=== PATIENT | female | born 1990 | race Hispanic/Latino ===

== ENCOUNTER 2016-12-28 15:03 | Day surgery (SDC) | payer OTHER ==
[2016-12-28 15:59] VITALS: BMI 50.0
[2016-12-28 16:01] VITALS: BP 103/55; TEMP 99
[2016-12-28] MEDS ORDERED: FLU VACC QS2017-18 36 mo. & older 0.5 ML SYRINGE IM ONE (16:15)
[2016-12-28 16:51] LABS: #Basophils 0.1 thou/uL (0.0-0.2); #Eosinphils 0.2 thou/uL (0.0-0.7); #Lymphocytes 2.4 thou/uL (1.20-3.40); #Monocytes 0.7 thou/uL (0.11-0.59); %Basophils 0.6 % (0.0-1.0); %Eosinophils 2.2 % (0.0-10.0); %Lymphocytes 28.8 % (21.0-51.0); %Monocytes 8.2 % (0.0-10.0); Mean Platelet Volume 7.4 fL (7.4-10.4); White Blood Cell (WBC) Count 8.3 thou/uL (4.8-10.8)
[2016-12-28 17:12] LABS: Amnisure Test No Membranes Rupture (No Rupture)
[2016-12-28 17:16] LABS: ALT (SGPT) 7 U/L (8-55); AST (SGOT) 13 U/L (5-34); Alkaline Phosphatase 183 U/L (40-150); Anion Gap 11 mmol/L (10-20); BUN (Urea Nitrogen) 8 mg/dL (7.0-18.7); Bilirubin, Total 0.3 mg/dL (0.2-1.2); Calc. Creatinine Clearance 264 mL/min (70-130); Calcium 9.1 mg/dL (7.8-10.44); Carbon Dioxide 23 mmol/L (22-29); Chloride 106 mmol/L (98-107); Estimated GFR-MDRD Greater than 90; Globulin 4.2 g/dL (2.4-3.5); Protein, Total 7.3 g/dL (6.0-8.3)
--- NOTE | 2016-12-28 21:11 | PRG ---
DATE OF SERVICE: 12/28/2016 PRESENTING COMPLAINT: Lower abdominal pain at 34 weeks' gestation with nausea. HISTORY OF PRESENT ILLNESS: Ms. Lamas is a 26-year-old female well known to Labor and Delivery unit. She is a seen at the Clinic and this is her third visit during this p regnancy. She has a relatively uncomplicated OB history with 3 previous spontaneous vaginal deliver ies at 38 and 37 weeks as well as an elective termination x1 at in [place]. She reports lower abdominal pain and pressure and round ligament pain. She thinks she had some discharge, but does n ot think her water broke. She reports mild nausea. OB AND EXTENSION SPECIALIST HISTORY: As noted, history of chlamydia. Blood type unknown. Other labs appear normal. OB record: She had a positive group B strep culture in her urine in early . There was a h istory of chlamydia in the past. PAST MEDICAL HISTORY: Significant for morbid obesity and depression PAST SURGICAL HISTORY: Cholecystectomy. ALLERGIES: Denies. MEDICATIONS: vitamins. SOCIAL HISTORY: Denies tobacco, alcohol, or drug use. FAMILY HISTORY: Noncontributory. REVIEW OF SYSTEMS: Noncontributory. PHYSICAL EXAMINATION: . GENERAL: Morbidly obese female, in no acute distress. VITAL SIGNS: Blood pressure 131/78, temperature 96, respirations 18, and pulse 85. HEENT: Within normal limits. LUNGS: Clear to auscultation bilaterally. HEART: Regular rhythm. BREASTS: No masses bilaterally. ABDOMEN: Soft, nontender, no palpable contractions. GENITOURINARY: Vulva without lesions. Vagina without discharge. Cervix is 1, long, and high. EXTREMITIES: Without clubbing, cyanosis or edema. LABORATORY STUDIES: CBC is within normal limits. Comp met is within normal limits as well. monitoring: greater than 30 minute strip revealed positive accelerations, no decels and no contract ions noted. IMPRESSION: Discomforts of /round ligament pain at 34 weeks gestation without evidence of labor. PLAN: Reassurance discharge home. The patient to keep scheduled followup at clinic.
== END 2016-12-28 18:20 | disposition home or self-care (01) ==
LOC: L&D/OP 15:03
PROVIDERS: ATTEND Obstetrics & Gynecology
DX: O26.893 Other specified pregnancy related conditions, third trimester (principal); O99.89 Other specified diseases and conditions complicating pregnancy, childbirth and the puerperium; R10.30 Lower abdominal pain, unspecified; O99.213 Obesity complicating pregnancy, third trimester; E66.01 Morbid (severe) obesity due to excess calories; Z68.43 Body mass index [BMI] 50.0-59.9, adult; Z79.899 Other long term (current) drug therapy; Z90.49 Acquired absence of other specified parts of digestive tract; Z87.891 Personal history of nicotine dependence; Z3A.34 34 weeks gestation of pregnancy
CPT/HCPCS: 36415; 80053; 84112; 85025

== ENCOUNTER 2017-01-24 17:45 | Day surgery (SDC) | payer OTHER ==
[2017-01-24 18:08] VITALS: BP 123/72; TEMP 98.5
[2017-01-24 18:12] VITALS: BMI 51.3
[2017-01-24 18:51] LABS: Amnisure Test No Membranes Rupture (No Rupture)
[2017-01-24] MEDS ORDERED: Acetaminophen 500 MG TAB PO SCH (19:45)
[2017-01-24] MEDS ORDERED: MORPHINE 10 MG/ML SYRINGE IM SCH (21:15)
[2017-01-24] MEDS ORDERED: Morphine 10 MG/ML VIAL ONE (21:40)
--- NOTE | 2017-01-25 01:35 | PRG ---
DATE OF SERVICE: 01/24/2017 CHIEF COMPLAINT: Abdominal pain. HISTORY OF PRESENT ILLNESS: The patient is a 26-year-old female, G5, P3, with an intrauterine pregn nixon at 38 weeks and 4 days, who was represented to labor and delivery today with complaints of uter ine contractions. She last presented early in the morning with similar complaints. She reports angel luis t her contractions dissipated after being discharged home and returned again today around noon. She reports that the pains are intermittent, sometimes more severe than other times. She reports that she may be having a small amount of leakage of fluid, but is unsure at source. She denies any vagin al bleeding. She reports that she is tired of being and feeling the discomfort that she viera s been experiencing. PAST MEDICAL HISTORY: Significant for anxiety and depression. PAST SURGICAL HISTORY: She has had a cholecystectomy. ALLERGIES: No known drug allergies. MEDICATIONS: The patient is on vitamins, on Prozac, and on Xanax, prescribed by [facility]. OB LABS: Unavailable at the time of dictation. OB HISTORY: She has had 3 term spontaneous vaginal deliveries. REVIEW OF SYSTEMS: The patient denies illness, fever, cough, headache, chest pain, shortness of navya ath, nausea or vomiting. She has had some diarrhea in the recent past. Denies constipation. Denie s any new rash, lumps or bumps. Denies any hip problems or knee problems. She has had some lower b ack problems and pain with this . Her pain and contraction pains are mainly in her lower p tyler and in the front and more recently in her back. The patient denies any vaginal bleeding, any urinary problems. PHYSICAL EXAMINATION: VITAL SIGNS: Blood pressure is 123/72, heart rate of 94, respiratory rate of 18, temperature of 98. 8. GENERAL: She appears to be in no acute distress. She is alert and oriented, and cooperative and pl easant to interact with. The patient does appear anxious and uncomfortable. HEAD: Normocephalic, atraumatic. LUNGS: Clear to auscultation bilaterally. HEART: Has regular rate and rhythm. ABDOMEN: Obese and gravid and tender. No guarding. The patient has SI joint tenderness to palpati on, that upon palpation report that is the main source of her pain. PELVIC: Vulva is without masses, lesions or erythema. Vagina is moist. Cervix is about 4 cm, 80% effaced and -2 station. She is unchanged essentially after 3-1/2 hours. heart tracing for threatened labor, baseline is noted to be in the 140s with moderate long-ter m variability, positive accelerations, no decelerations, very difficult to identify contractions on the monitor. AmniSure test returned negative. ASSESSMENT AND PLAN: The patient is a 26-year-old female with an intrauterine at 38 weeks and 4 days and a very favorable cervix. There is no evidence of active labor at this time and is d ifficult to identify when her contractions are occurring and fetus has a reassuring tracing. The pa nurys has expressed a lot of distress with this and she has found some reassurance and angel luis t we have scheduled her for elective induction of labor at 39 weeks' gestation, which puts her to th is Wednesday should she not enter labor on her own. She has been asked to come at 9:00 in the [facility]. I have notified the OB provider, OB hospitalist, on duty that day, Dr. Peters, who has agreed wi th this. The patient has been given term labor precautions. She has been given 8 mg of morphine IM an hour or so prior to discharge home, which is provided some comfort.
== END 2017-01-24 22:35 | disposition home or self-care (01) ==
LOC: L&D/OP 17:45
PROVIDERS: ATTEND Obstetrics & Gynecology
DX: O47.1 False labor at or after 37 completed weeks of gestation (principal); O99.343 Other mental disorders complicating pregnancy, third trimester; F41.9 Anxiety disorder, unspecified; F32.9 Major depressive disorder, single episode, unspecified; Z3A.38 38 weeks gestation of pregnancy; Z79.899 Other long term (current) drug therapy; Z90.49 Acquired absence of other specified parts of digestive tract; Z87.891 Personal history of nicotine dependence
CPT/HCPCS: 84112; 96372; J2270

== ENCOUNTER 2017-01-26 08:47 | Inpatient (IN) | payer OTHER ==
[2017-01-26 09:14] VITALS: BMI 51.3
[2017-01-26] MEDS ORDERED: Lidocaine 1% (PF) 30 ML VIAL SC PRN (12:56)
[2017-01-26] MEDS ORDERED: Ondansetron HCl/PF 4 MG/2 ML Vial IVP PRN ×3 (12:56→19:47)
[2017-01-26] MEDS ORDERED: Ibuprofen 800 MG TAB PO PRN (12:56)
[2017-01-26] MEDS ORDERED: Promethazine HCl 25 MG/ML VIAL IM PRN ×2 (12:56→14:15)
[2017-01-26] MEDS ORDERED: LR / Pitocin 40 units/1000 ml 1,000 ML IV PRN (12:56)
[2017-01-26] MEDS ORDERED: HYDROcodone/Acetaminophen 5/325 mg Tablet PO PRN ×3 (12:56→19:47)
[2017-01-26] MEDS ORDERED: Lactated Ringer's 1,000 ML IV SCH (13:00)
[2017-01-26] MEDS ORDERED: Penicillin G Potassium 5 MILL.UNITS in Sodium Chloride 0.9% 100 ML IVPB SCH (13:00)
[2017-01-26] MEDS: Lactated Ringer's 1,000 ML IV SCH ×2 (13:10→14:31)
[2017-01-26] MEDS ORDERED: Fentanyl 4 mcg/Marc 0.1% Cadd 100 ML ONE (13:32)
[2017-01-26] MEDS ORDERED: Fentanyl 100 MCG/2 ML VIAL ONE (13:37)
[2017-01-26] MEDS ORDERED: Bupivacaine 0.75% W/DEXTROSE 8.25% 2 ML AMP ONE (13:37)
[2017-01-26 13:57] LABS: Hematocrit 32.7 % (36.0-47.0); Mean Platelet Volume 7.5 fL (7.4-10.4); Red Blood Cell (RBC) Count 3.89 mill/uL (4.20-5.40); White Blood Cell (WBC) Count 14.4 thou/uL (4.8-10.8)
[2017-01-26] MEDS ORDERED: Fentanyl 100 MCG/2 ML VIAL I-THECAL ONE (14:15)
[2017-01-26] MEDS ORDERED: Communication Order-Pharmacy FS SCH (14:15)
[2017-01-26] MEDS ORDERED: Eucerin (Mineral Oil/Petrolatum,White) 30 gm Jar TOP PRN (14:15)
[2017-01-26] MEDS ORDERED: Fentanyl 4mcg/Marcaine 0.1% Cassette 100 ML EPIDURAL SCH (14:15)
[2017-01-26] MEDS ORDERED: diphenhydrAMINE 50 MG/ML VIAL IVP PRN (14:15)
[2017-01-26] MEDS ORDERED: Naloxone HCl 0.4 mg/ml Vial IVP PRN ×2 (14:15)
[2017-01-26] MEDS ORDERED: ePHEDrine/0.9% NaCl/PF SYRINGE 50 mg/10 ml SLOW IVP PRN (14:15)
[2017-01-26] MEDS ORDERED: Bupivacaine 0.75% W/DEXTROSE 8.25% 2 ML AMP NERVE BLCK ONE (14:15)
[2017-01-26] MEDS ORDERED: Lactated Ringer's 500 ML IV PRN (14:15)
[2017-01-26] MEDS ORDERED: Acetaminophen 325 MG TAB PO PRN (14:15)
[2017-01-26] MEDS ORDERED: Penicillin G 2.5 MILL.units 2.5 MILL.UNITS in Premix Bag 1 BAG IVPB SCH (17:00)
[2017-01-26] MEDS ORDERED: Bisacodyl 10 MG SUPP PR PRN (19:47)
[2017-01-26] MEDS ORDERED: Milk Of Magnesia 30 ML UDCUP PO PRN (19:47)
[2017-01-26] MEDS ORDERED: Adacel (T-DAP) 0.5 ML VIAL IM ONE (19:47)
[2017-01-26] MEDS ORDERED: Lanolin Ointment 7 GM TUBE TOP PRN (19:47)
[2017-01-26] MEDS ORDERED: LR / Pitocin 40 units/1000 ml 1,000 ML IV SCH (19:47)
[2017-01-26] MEDS: Ibuprofen 800 MG TAB PO SCH (20:24)
[2017-01-26] MEDS: Docusate (Surfak) 240 MG CAP PO SCH (20:24)
[2017-01-27] MEDS: HYDROcodone/Acetaminophen 5/325 mg Tablet PO PRN ×5 (02:01→21:38)
[2017-01-27 05:30] LABS: Hematocrit 28.3 % (36.0-47.0); Mean Platelet Volume 7.4 fL (7.4-10.4); Red Blood Cell (RBC) Count 3.38 mill/uL (4.20-5.40); White Blood Cell (WBC) Count 12.2 thou/uL (4.8-10.8)
[2017-01-27] MEDS: Ibuprofen 800 MG TAB PO SCH ×3 (05:46→21:37)
[2017-01-27] MEDS: Prenatal Vitamin 1 TAB PO SCH (08:21)
[2017-01-27] MEDS: Ferrous Sulfate 325 MG TAB PO SCH ×2 (08:21→17:11)
[2017-01-27] MEDS: Docusate (Surfak) 240 MG CAP PO SCH ×2 (08:21→21:37)
--- NOTE | 2017-01-27 08:26 | PRG ---
DATE OF SERVICE: 01/27/2017 PRIMARY OB: Clinic HISTORY OF PRESENT ILLNESS: The patient is a 26-year-old female day 1, status post a ter m spontaneous vaginal delivery. The patient reports that this morning she is tolerating p.o., voidi ng on her own, having decreased lochia. She has some concern about breast feeding and her baby's ab ility to latch. PHYSICAL EXAMINATION: VITAL SIGNS: Today blood pressure 99/49, temperature 98.0, pulse is 62, respiratory rate 20. GENERAL: She appears to be in no acute distress. She is alert and oriented, and cooperative and pl easant and interactive. HEENT: Normocephalic, atraumatic. ABDOMEN: Soft. Fundus is firm; however, difficult to assess due to habitus. EXTREMITIES: Nontender. LABORATORY: Her hemoglobin is 9.3, hematocrit 28.3, platelets of 244,000. ASSESSMENT AND PLAN: The patient is post- day 1, status post a term spontaneous vaginal deliv shaniqua. Anticipate discharge tomorrow.
--- NOTE | 2017-01-27 10:22 | DN ---
DATE OF DELIVERY: 01/26/2017 SUMMARY: The patient delivered a male on 01/26/2017 at 15:50 by term spontaneous vaginal deli very. Weight was 3360 grams, Apgars were 9 and 9. Placenta delivered spontaneously followed by Pavel myke infusion. There were no lacerations. Dr. Russell is the delivering physician. Estimated blood loss is 200 mL. Mother and baby are stable in the immediate .
--- NOTE | 2017-01-27 14:52 | PDOC.EVN ---
Event Note - Event Note Event Note: 01/27/17 @ 1451: Patient takes prozac 60mg po QD and requests med to continue. I will order now for her.
[2017-01-27] MEDS ORDERED: FLUoxetine HCl 20 MG CAP PO SCH (19:15)
[2017-01-27 21:27] VITALS: BP 121/75; TEMP 98
[2017-01-28] MEDS: HYDROcodone/Acetaminophen 5/325 mg Tablet PO PRN ×3 (01:33→12:28)
[2017-01-28] MEDS: Ibuprofen 800 MG TAB PO SCH (06:02)
--- NOTE | 2017-01-28 07:58 | DIS ---
DATE OF ADMISSION: 01/26/2017 DATE OF DISCHARGE: 01/28/2017 LOCATION: 3 [facility], patient in room 341. PRINCIPAL DIAGNOSES: 1. Term vaginal delivery. 2. Multigravida. HOSPITAL COURSE: In brief, this is a patient who was admitted by Dr. Russell on day of presentation as a patient with spontaneous onset of labor. She is a patient of the Clinic. Past medical history included a history of anxiety and past medications include Prozac. The patient was admitted for routine labor management. For full details of her labor and delivery process and delivery itself please turn to note by Dr. Russell on 01/26/2017. I evaluated the patient on day #2 , which was 01/28/2017 and found her to be clinically stable for discharge. Her temperature ranged from 98.0 to 98.5. Pulse was in the 50s to 60s, blood pressure ranged from 121/75 to 99/14. On laboratory assessment predelivery hematocrit value was 32 and value was 28.3. Hepatitis B surface antigen and syphilis serologies were drawn on admission and were both negative. PHYSICAL EXAMINATION: She is in no acute distress. Uterus was firm and nontender, although it was difficult to palpate the uterus because her BMI was 51. DISPOSITION: She was sent home on Motrin p.r.n. for after pains. She was also told to call the Clinic for followup appointment in 4 weeks for routine care and she voiced understanding. KD
[2017-01-28] MEDS: Prenatal Vitamin 1 TAB PO SCH (08:18)
[2017-01-28] MEDS: Ferrous Sulfate 325 MG TAB PO SCH (08:18)
[2017-01-28] MEDS: Docusate (Surfak) 240 MG CAP PO SCH (08:18)
[2017-01-28] MEDS ORDERED: FLUoxetine HCl 20 MG CAP PO SCH (09:00)
== END 2017-01-28 13:15 | disposition home or self-care (01) | DRG 775 ==
LOC: L&D/OP 08:47 → L&D 13:00 → 3SW 19:33
PROVIDERS: ADMIT Obstetrics & Gynecology; ATTEND Obstetrics & Gynecology
PROC: 10E0XZZ Delivery of Products of Conception, External Approach (ICD-10-PCS; principal; 2017-01-26)
DX: O99.344 Other mental disorders complicating childbirth (principal); Z68.43 Body mass index [BMI] 50.0-59.9, adult; F41.9 Anxiety disorder, unspecified; Z3A.38 38 weeks gestation of pregnancy; Z37.0 Single live birth; F32.9 Major depressive disorder, single episode, unspecified; O99.214 Obesity complicating childbirth; O99.02 Anemia complicating childbirth; D64.9 Anemia, unspecified; E66.01 Morbid (severe) obesity due to excess calories
CPT/HCPCS: 36415; 85027; 86780; 87340; J0595; J2540; J3010; J3490; J7050

== ENCOUNTER 2017-06-28 09:34 | Emergency (ER) | payer OTHER ==
[2017-06-28] MEDS ORDERED: Lidocaine 1% PF 5 ML VIAL ONE ×2 (11:00→11:03)
[2017-06-28] MEDS ORDERED: Adacel (T-DAP) 0.5 ML VIAL ONE (11:01)
[2017-06-28] MEDS ORDERED: Ibuprofen 200 MG TAB ONE (11:01)
== END 2017-06-28 12:00 | disposition home or self-care (01) ==
LOC: ERS 09:34
DX: S91.332A Puncture wound without foreign body, left foot, initial encounter (principal); F41.9 Anxiety disorder, unspecified; F32.9 Major depressive disorder, single episode, unspecified; Z87.891 Personal history of nicotine dependence; Z79.899 Other long term (current) drug therapy; W45.0XXA Nail entering through skin, initial encounter
CPT/HCPCS: 90471; 90715; J2001

== ENCOUNTER 2017-08-17 13:13 | Emergency (ER) | payer OTHER ==
[2017-08-17] MEDS ORDERED: Acetaminophen 500 MG TAB ONE (13:55)
[2017-08-17] MEDS ORDERED: HYDROcodone/Acetaminophen 10/325 mg Tablet ONE (14:48)
--- NOTE | 2017-08-17 15:22 | RAD ---
LEFT HAND THREE VIEWS: 08/17/2017 HISTORY: Trauma. Pain. COMPARISON: None. FINDINGS: No acute fracture or evidence of dislocation is seen. IMPRESSION: No acute findings. POS: [facility]
--- NOTE | 2017-08-17 15:29 | CT ---
CT OF THE HEAD WITHOUT CONTRAST: DATE: 08/17/17. COMPARISON: 07/05/16. HISTORY: Trauma, pain. TECHNIQUE: Serial axial CT imaging is obtained at 5 mm intervals from vertex through the skull base without cont rast. FINDINGS: Imaged frontal sinus ethmoid air cells and maxillary sinus on the right are opacified, new when mariza red to prior imaging. There is no displaced calvarial fracture. No intracranial hemorrhage, midline shift, or mass effect noted. Incidental note is made of 2 subcentimeter foci of fat density in the central midline region at the a xial level of the 3rd ventricle suggesting incidentally noted small intracranial lipoma measuring up to 5 mm, unchanged. IMPRESSION: Interval development of incompletely assessed paranasal sinus disease on the right. No fracture or i ntracranial hemorrhage. POS: [facility]
--- NOTE | 2017-08-17 15:34 | CT ---
CT CERVICAL SPINE WITHOUT CONTRAST 08/17/17 COMPARISON: None. HISTORY: Trauma, pain. FINDINGS: Incidental note is made of marked nonspecific enlargement of the thyroid gland. This appearance is si milar when compared to a CT examination of the neck performed 01/13/13. The C1 ring is intact. The dens, occipital condyles and the C1-2 articulation appear within normal li mits. The imaged lung apices are unremarkable. There is straightening of the normal cervical lordosis. The craniocervical junction, atlantoaxial int erspace, and cervicothoracic junction appear intact on the lateral exam. No prevertebral soft tissue swelling. No fracture or evidence of dislocation is seen. There is mild n odal enlargement involving level IIa nodes bilaterally, similar when compared to the 01/13/13 examinat ion. IMPRESSION: No acute osseous abnormality. Enlarged thyroid gland, a stable finding. POS: [facility]
== END 2017-08-17 15:14 | disposition home or self-care (01) ==
LOC: ERS 13:13
DX: S09.90XA Unspecified injury of head, initial encounter (principal); S16.1XXA Strain of muscle, fascia and tendon at neck level, initial encounter; S60.052A Contusion of left little finger without damage to nail, initial encounter; E04.9 Nontoxic goiter, unspecified; J32.9 Chronic sinusitis, unspecified; F41.9 Anxiety disorder, unspecified; F32.9 Major depressive disorder, single episode, unspecified; F17.210 Nicotine dependence, cigarettes, uncomplicated; Z79.899 Other long term (current) drug therapy; Y04.0XXA Assault by unarmed brawl or fight, initial encounter
CPT/HCPCS: 70450; 72125

== ENCOUNTER 2017-08-24 18:20 | Emergency (ER) | payer OTHER ==
[2017-08-24 19:16] LABS: Pregnancy Test - Urine (BHCG) Negative (Negative); Pregu Control Background? CLEAR/WHITE (CLR/WHITE); Pregu Control Bar Appear? YES (CONTROL BAR)
[2017-08-24] MEDS ORDERED: Ketorolac Tromethamine 60 MG/2 ML VIAL ONE (19:21)
== END 2017-08-24 19:52 | disposition home or self-care (01) ==
LOC: ERS 18:20
DX: M54.2 Cervicalgia (principal); F41.9 Anxiety disorder, unspecified; F32.9 Major depressive disorder, single episode, unspecified; Z79.899 Other long term (current) drug therapy
CPT/HCPCS: 81025; 96372; J1885

== ENCOUNTER 2017-09-08 20:59 | Emergency (ER) | payer OTHER | END 2017-09-08 21:38 | disposition left against medical advice (07) | LOC: ERS 20:59 | DX: Z53.21 Procedure and treatment not carried out due to patient leaving prior to being seen by health care provider (principal) ==

== ENCOUNTER 2017-09-09 18:54 | Emergency (ER) | payer OTHER ==
[2017-09-09] MEDS ORDERED: Acetaminophen/Codeine 30-300mg Tablet ONE (19:51)
== END 2017-09-09 20:51 | disposition home or self-care (01) ==
LOC: ERS 18:54
DX: L04.0 Acute lymphadenitis of face, head and neck (principal); K08.89 Other specified disorders of teeth and supporting structures; F41.9 Anxiety disorder, unspecified; F32.9 Major depressive disorder, single episode, unspecified; F17.210 Nicotine dependence, cigarettes, uncomplicated; Z79.899 Other long term (current) drug therapy
CPT/HCPCS: 87081; 87430; 99283

== ENCOUNTER 2018-02-13 02:36 | Emergency (ER) | payer OTHER ==
[2018-02-13 03:10] LABS: Bilirubin Negative (Negative); Blood, Urine Negative (Negative); Clarity CLEAR (Clear); Glucose, Urine (Dipstick) Negative (Negative); Leukocyte Negative (Negative); Nitrite Negative (Negative); Protein, Urine (Dipstick) Negative (Neg-Trace); Urobilinogen 0.2 mg/dL (0.2-1.0)
== END 2018-02-13 03:25 | disposition left against medical advice (07) ==
LOC: ERS 02:36
DX: Z53.21 Procedure and treatment not carried out due to patient leaving prior to being seen by health care provider (principal)
CPT/HCPCS: 81003

== ENCOUNTER 2018-07-14 18:59 | Day surgery (SDC) | payer OTHER ==
[2018-07-14 19:25] VITALS: BP 119/54; TEMP 98.8; BMI 46.7
--- NOTE | 2018-07-14 19:47 | PDOC.FPROB ---
FMR OB H&P: HPI - History of Present Illness Chief Complaint: Contractions History of Present Illness: 28 yo @ 29.6 wks presents for contractions for past 30+ hours. No records from PNC available. Describes this as nonstop pressure in lower abdomen but also in epigastric area. It occurs with sitting/standing and stops when laying down. Denies vaginal bleeding, discharge, loss of fluid, dysuria, headache, N/V/D. Feels movement. Has not had vaginal exam this . Has history of depression and was restarted on fluoxetine during . Says this is helping. Otherwise no complications per patient this . Due for a pap, missed last appt Wednesday and needs to reschedule. 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 Due for pap. Hx chlamydia 3 years ago. - Surgical History Sx History: choleceystectomy 2011 - Social History Social History: No tobacco, alcohol, drug use. - Family History Family History: Mom-hyperthyroid FMR OB H&P: Medications - Current Home Medications: Medication Instructions Recorded Confirmed Type FLUoxetine HCl [Prozac] 60 mg PO DAILY 10/16/15 01/26/17 History Vitamin 1 tablet PO DAILY 12/28/16 01/26/17 History Allergies/Adverse Reactions: Allergies Allergy/AdvReac Type Severity Reaction Status Date / Time No Known Allergies Allergy Verified 07/14/18 19:21 FMR OB H&P: ROS - Review of Systems General: denies: fever/chills Eyes: denies: vision changes ENT: denies: nasal congestion Cardiovascular: denies: chest pain, palpitation Gastrointestinal: denies: nausea, vomiting, diarrhea Genitourinary (Female): reports: contractions. denies: incontinence, dysuria, vaginal discharge, vaginal pain, vaginal bleeding Musculoskeletal: denies: swelling Neurologic: denies: headache Integumentary: denies: itching Psychological: reports: depression, paranoia FMR OB H&P: Vital Signs - Maternal Vital signs: Vital Signs - First Documented Temp Pulse Resp BP 98.8 F 84 16 119/54 L 07/14/18 19:20 07/14/18 19:20 07/14/18 19:20 07/14/18 19:20 - Heart Tones Baseline: 135 Variability: moderate Acceleration: absent Deceleration: absent [place] contractions every: none FMR OB H&P: Physical Exam - Physical Exam General: awake, alert and oriented HEENT: normocephalic and atraumatic, MMM Heart: RRR, normal S1/S2, no murmurs/rubs/gallops, no edema General: CTAB, no respiratory distress Abdomen: soft, gravid, non-tender Skin: no rash, good tugor Psychiatric: normal mood and affect FMR OB H&P: A/P Discussion: Date/Time: 07/14/181945 Contractions - unusual description of contractions, see HPI. Resolves with laying down. No other complaints. - no contractions on monitor, FHT 135 with mod variability - will get UA and fibronectin - PO hydration Depression/anxiety - on fluoxetine Dispo: Pending results will likely be able to discharge home This H&P was discussed with Dr. George and Dr. Degroot who agree with the above documentation and plan. Addendum - Attending - Attending Attestation Date/Time: 07/14/18 [id number] I personally evaluated the patient and discussed the management with Dr. Mchugh. I agree with the History, Examination, Assessment and Plan documented above.
[2018-07-14 20:38] LABS: RBC/HPF 0-3 HPF (0-3); WBC/HPF 0-3 HPF (0-3)
[2018-07-14 20:39] LABS: Bacteria/HPF Rare-Few HPF (None Seen); Hyaline Casts/LPF NONE SEEN LPF (0-3 Hyaline)
[2018-07-14] MEDS ORDERED: Acetaminophen 500 MG TAB PO SCH (20:45)
[2018-07-14 20:48] LABS: FFN Internal QC Analyzer PASS (PASS); FFN Internal QC Cassette PASS (PASS); Fetal Fibronectin Negative (Negative)
--- NOTE | 2018-07-14 21:23 | PDOC.EVN ---
Event Note - Event Note Event Note: Cervical check Cl/Th/H. UA and fibronectin negative. Patient discharged home with return precautions given. Addendum - Attending - Attending Attestation Date/Time: 07/14/18 2660 I personally evaluated the patient and discussed the management with Dr. Mchugh. No UCs seen. FNN negative. I agree with the Assessment and Plan documented above.
== END 2018-07-14 21:10 | disposition home or self-care (01) ==
LOC: L&D/OP 18:59
PROVIDERS: ATTEND Obstetrics & Gynecology
DX: O47.03 False labor before 37 completed weeks of gestation, third trimester (principal); O99.343 Other mental disorders complicating pregnancy, third trimester; F32.9 Major depressive disorder, single episode, unspecified; Z3A.29 29 weeks gestation of pregnancy; Z79.899 Other long term (current) drug therapy
CPT/HCPCS: 81015; 82731; 99283

== ENCOUNTER 2018-07-23 17:46 | Emergency (ER) | payer OTHER ==
[2018-07-23] MEDS ORDERED: Acetaminophen 500 MG TAB ONE (18:36)
== END 2018-07-23 18:47 | disposition home or self-care (01) ==
LOC: ERS 17:46
DX: O99.613 Diseases of the digestive system complicating pregnancy, third trimester (principal); K12.0 Recurrent oral aphthae; M27.3 Alveolitis of jaws; O99.343 Other mental disorders complicating pregnancy, third trimester; F41.9 Anxiety disorder, unspecified; F32.9 Major depressive disorder, single episode, unspecified; Z3A.31 31 weeks gestation of pregnancy; Z98.818 Other dental procedure status
CPT/HCPCS: 87081; 87430; 99283

== ENCOUNTER 2018-07-30 06:44 | Emergency (ER) | payer OTHER ==
[2018-07-30] MEDS ORDERED: Proparacaine 0.5% Opth 15 ML BOT ONE (07:22)
[2018-07-30] MEDS ORDERED: Fluorescein Opthalmic Strip ONE (07:22)
[2018-07-30] MEDS ORDERED: Acetaminophen 500 MG TAB ONE (08:01)
== END 2018-07-30 08:18 | disposition home or self-care (01) ==
LOC: ERS 06:44
DX: O99.89 Other specified diseases and conditions complicating pregnancy, childbirth and the puerperium (principal); S05.02XA Injury of conjunctiva and corneal abrasion without foreign body, left eye, initial encounter; H16.002 Unspecified corneal ulcer, left eye; O99.343 Other mental disorders complicating pregnancy, third trimester; F41.9 Anxiety disorder, unspecified; F32.9 Major depressive disorder, single episode, unspecified; X58.XXXA Exposure to other specified factors, initial encounter; Z3A.32 32 weeks gestation of pregnancy
CPT/HCPCS: 99283

== ENCOUNTER 2018-08-30 18:59 | Day surgery (SDC) | payer OTHER ==
--- NOTE | 2018-08-30 20:13 | PDOC.FPROB ---
FMR OB H&P: HPI - History of Present Illness Chief Complaint: pelvic pressure Indentification: 28 yo History of Present Illness: 28 yo at 36.4 wks by 9wk ernst who presents for pelvic pressure, started this afternoon. It was mild but the pressure became more constant and intense. Endorses FM, denies VB/VD/LOF. No other complaints at this time. Primary Care Physician: Rosa FMR OB H&P: Current - Care : 6 Para: [id number] Gestational age: 36.4 Due date: 09/23/18 Dating Criteria: 1T sono - OB Labs Blood type: O RH: positive Antibody Screen: negative HIV: negative RPR: negative HepBsAg: negative Rubella: immune Gonorrhea: negative Chlamydia: negative Pap Smear: LSIL, high risk HPV 18 A1c: 4.6 FMR OB H&P: History - Past Medical History PMH: obesity, depression, anxiety - OB History OB History: 4 term 1 SAB - ADMISSION LIAISON History ADMISSION LIAISON History: LSIL, HPV18 positive - Surgical History Sx History: cholecstectomy - Social History Social History: denies t/e/d - Family History Family History: denies congenital anomalies hypothyroidism FMR OB H&P: Medications - Current Home Medications: Medication Instructions Recorded Confirmed Type FLUoxetine HCl [Prozac] 60 mg PO DAILY 10/16/15 01/26/17 History Vitamin 1 tablet PO DAILY 12/28/16 01/26/17 History Allergies/Adverse Reactions: Allergies Allergy/AdvReac Type Severity Reaction Status Date / Time No Known Allergies Allergy Verified 07/14/18 19:21 FMR OB H&P: ROS - Review of Systems General: denies: fever/chills, weight/appetite/sleep changes Eyes: denies: eye pain, vision changes ENT: denies: nasal congestion, rhinorrhea, frequent nose bleed Cardiovascular: denies: chest pain, palpitation Respiratory: denies: cough Gastrointestinal: denies: abdominal pain, indigestion, bloating, nausea Genitourinary (Female): reports: vaginal pressure. denies: dysuria, hematuria, vaginal pain, vaginal bleeding, vaginal mass/sore Integumentary: denies: itching, rash Endocrine: denies: cold intolerance, heat intolerance Psychological: denies: depression, anxiety FMR OB H&P: Vital Signs - Heart Tones Baseline: 130 Variability: moderate Deceleration: absent Category: category 1 [place] contractions every: uterine irritability FMR OB H&P: Physical Exam - Physical Exam General: NAD HEENT: normocephalic and atraumatic, PERRLA, EOMI, MMM Neck: supple, FROM Heart: RRR, normal S1/S2 General: CTAB, no respiratory distress, good air movement Abdomen: soft, gravid, fundus(cm) Musculoskeletal: pulses present, FROM in all four extremities Neurological: cranial nerves II through XII intact Skin: no rash, good tugor, capillary refill <2 seconds Lymphatic: no unusual bruising or bleeding, no purpura Psychiatric: intact recent and remote memory, good judgement and insight FMR OB H&P: A/P - Problem List (1) Grand multipara Current Visit: Yes Status: Acute Code(s): Z64.1 - PROBLEMS RELATED TO MULTIPARITY (2) Single in third trimester Current Visit: Yes Status: Acute Code(s): Z34.93 - ENCNTR FOR SUPRVSN OF NORMAL PREG, UNSP, THIRD TRIMESTER (3) Depression Current Visit: Yes Status: Acute Code(s): F32.9 - MAJOR DEPRESSIVE DISORDER , SINGLE EPISODE, UNSPECIFIED (4) Anxiety Current Visit: Yes Status: Acute Code(s): F41.9 - ANXIETY DISORDER, UNSPECIFIED (5) Obesity Current Visit: Yes Status: Acute Code(s): E66.9 - OBESITY, UNSPECIFIED (6) LGSIL (low grade squamous intraepithelial dysplasia) Current Visit: Yes Status: Acute Code(s): [id number] - Discussion: Date/Time: 08/30/182012 28 at 36.4 here for pelvic pressure sIUP, labor rule out, -Minimal strip but thus far reactive & reassuring, no CTX-will return to recheck this -SVE 3, vertex, no ROM -will recheck in 2 hours to assess LSIL -HPV 18, needs outpt follow up Obesity -labs with no gestational DM -Nutrition Services Associate on lifestyle modification Depression/anxiety -previously on prozac, not taken for past month -no SI/HI -continue f/u outpt This H&P was discussed with Dr. Waller who agree with the above documentation and plan.
[2018-08-30 21:52] VITALS: BMI 48.9
--- NOTE | 2018-08-30 22:40 | PDOC.EVN ---
Event Note - Event Note Event Note: Patient reports having some vaginal pressure, improved with laying on side and position changes. About 5 CTX/2 hours. FHT reactive and reassuring. SVE 07/12/-3 , unchanged from two hours ago. Patient feels ready to go home. Gave labor precautions. Collected GBS. She plans to make appt this week to f/u with Dr. Lee
[2018-08-30] MEDS ORDERED: Acetaminophen 325 MG TAB PO SCH (23:00)
== END 2018-08-30 23:15 | disposition home or self-care (01) ==
LOC: L&D/OP 18:59
PROVIDERS: ATTEND Family Medicine
DX: O99.89 Other specified diseases and conditions complicating pregnancy, childbirth and the puerperium (principal); R10.2 Pelvic and perineal pain; O99.343 Other mental disorders complicating pregnancy, third trimester; F32.9 Major depressive disorder, single episode, unspecified; F41.9 Anxiety disorder, unspecified; O99.213 Obesity complicating pregnancy, third trimester; E66.9 Obesity, unspecified; Z3A.36 36 weeks gestation of pregnancy; Z79.899 Other long term (current) drug therapy; Z64.1 Problems related to multiparity
CPT/HCPCS: 87081; 99283

== ENCOUNTER 2018-09-05 14:13 | Inpatient (IN) | payer OTHER ==
[2018-09-05] MEDS ORDERED: Bupivacaine/Epinephrine 0.25% 30 ML VIAL ONE (15:00)
--- NOTE | 2018-09-05 16:21 | PDOC.LDHP ---
Labor and Delivery H&P HPI: Ms. Lamas presents for contractions since this morning. she is not really able to describe them other than painful and about 8 mins apart, she is tearful on exam and says she is in pain the whole time. She denies any LOF, vaginal bleeding/discharge, reduced movement, headache, edema, or SOB. She reports she thinks these contractions are similar to ones she has had in the past. Current gestational age (weeks): 37 (.3) Due date: 09/23/18 Grav: 6 Para: 4 (1 EAB) OB History Details: as above Abnormal US findings: Yes (poorly visualized heart and arms at 22wks) Past Medical History: anxiety/depression Current medications: pre- vitamins Previous surgical history: cholecystectomy Allergies/Adverse Reactions: Allergies Allergy/AdvReac Type Severity Reaction Status Date / Time No Known Allergies Allergy Verified 07/14/18 19:21 Social history: none - Physical Exam Vital signs reviewed and normal: yes General: other (tearful with contractions) Heart: RRR Lungs: CTAB Abdomen: NTTP Extremeties: no edema FHT: category 1 (baseline 130, mod variability, accels present) [place] contractions every: 8-10 mins - Vaginal Exam cm dilated: 3 Effacement: 50% Station: -2 - OB Labs Blood type: O RH: positive Antibody Screen: negative HIV: negative RPR: negative HEPSAg: negative 1 hour GCT: unknown GBS: unknown Urine drug screen: not done Rubella: immune Additional Labs: Hb 10.5 - Plan -: labor r/o - minimal changes after 2 hours, significant pain - round ligament pain vs contractions - morphine and recheck in 2 hours non-compliance - LTC and spotty appmts - no GBS or GTT available, no show for recommended repeat US - PNC to send additional records dispo: admit pending 2hr check and pain control
[2018-09-05] MEDS ORDERED: Morphine 4 MG/ML VIAL SLOW IVP SCH (16:30)
[2018-09-05] MEDS ORDERED: Lactated Ringer's 1,000 ML IV SCH ×2 (16:45→21:30)
[2018-09-05 17:10] VITALS: BMI 53.1
[2018-09-05] MEDS: Ondansetron PF 4 MG/2 ML Vial IVP PRN ×2 (17:24→22:45)
--- NOTE | 2018-09-05 19:40 | PDOC.LDPN ---
Labor & Delivery Progress Note - Subjective Subjective: painful contractions, vaginal pressure - Objective Vital signs reviewed and normal: yes General: other (Mild distress 2/2 pain) Uterine fundus: tender to palpation SVE: 2 [place] contractions every: Unable to lemon picker, pt thinks maybe every 7 minutes Other exam findings: Unable to see FHT 2/2 body habitus - Assessment (1) Obesity Code(s): E66.9 - OBESITY, UNSPECIFIED Current Visit: No Status: Acute (2) Single in third trimester Code(s): Z34.93 - ENCNTR FOR SUPRVSN OF NORMAL PREG, UNSP, THIRD TRIMESTER Current Visit: No Status: Acute -: Painful contractions vs. ligament pain -S/P morphine with some help, however pt reports this bothers her stomach -s/p LR bolus -Pt has unchanged cervical check over 5 hours at 2 and is not in active labor -Pending BPP to assess well being, will plan for 2 mg of stadol if BPP looks good -Will likely send home on tylenol #3 sIUP -Pt has plans to follow up this with her OB physician -Pt would likely benefit from weekly monitoring Plan discussed with Dr. Russell
[2018-09-05] MEDS ORDERED: Acetaminophen 500 MG TAB PO PRN (21:08)
[2018-09-05] MEDS ORDERED: hydrALAZINE 20 MG/ML VIAL SLOW IVP PRN (21:08)
[2018-09-05] MEDS ORDERED: Promethazine HCl 25 MG/ML VIAL IM PRN (21:08)
[2018-09-05] MEDS ORDERED: Lidocaine 1% (PF) 30 ML VIAL SC PRN (21:08)
[2018-09-05] MEDS ORDERED: NS / Oxytocin 40 units/1000ml 1,000 ML IV PRN (21:08)
--- NOTE | 2018-09-05 21:11 | ULT ---
Sonographic biophysical profile exam Obstetric sonogram Limited HISTORY: Nonreactive nonstress test. Third trimester gestation. FINDINGS: Single intrauterine gestation in cephalic presentation. Cervix is closed and 3.7 cm. Grade 2 placenta is anterior. No evidence of placenta previa. Heart motion at 111 bpm. Advanced age limits anatomic detail. Amniotic fluid index 11.7. Good tone and gross movements were demonstra michael. breathing movement not well visualized. IMPRESSION: Sonographic biophysical profile score 6/8. Breathing movements not visualized.
[2018-09-05 21:24] LABS: Hemoglobin 10.1 g/dL (12.0-16.0); Mean Corpuscular HGB CONC 31.7 g/dL (32.0-36.0); Mean Corpuscular Hemoglobin 25.8 pg (27.0-31.0); Mean Corpuscular Volume 81.4 fL (78.0-98.0); Mean Platelet Volume 8.7 fL (7.4-10.4); Platelet Count 250 thou/uL (130-400); RBC Distribution Width 13.8 % (11.5-14.5); Red Blood Cell (RBC) Count 3.92 mill/uL (4.20-5.40); White Blood Cell (WBC) Count 9.5 thou/uL (4.8-10.8)
--- NOTE | 2018-09-05 21:24 | PDOC.EVN ---
Event Note - Event Note Event Note: Pt had BPP showing 08/20. She lost 2 points for breathing. At this point, we are admitting pt for medically indicated IOL for non-reassuring BPP and difficult to monitor FHT. We plan to start an epidural on the pt for pain control as well as rupture her for FSE placement. GBS is unknown and we are starting penicillin prophylaxis.
[2018-09-05] MEDS ORDERED: NS w/ Oxytocin 10 units 500 ML IV SCH (21:30)
[2018-09-05] MEDS ORDERED: Penicillin G Potassium 5 MILL.UNITS in Sodium Chloride 0.9% 100 ML IVPB SCH (21:30)
[2018-09-05] MEDS ORDERED: Fentanyl 4 mcg/Bup 0.1% Cadd 100 ML ONE (21:56)
[2018-09-05 22:04] LABS: Syphilis Antibody Nonreactive (Nonreactive); Syphilis Antibody Index 0.06 S/CO (<1.00 Non-Reactive)
[2018-09-05] MEDS ORDERED: ePHEDrine/0.9% NaCl/PF SYRINGE 50 mg/10 ml SLOW IVP PRN (22:33)
[2018-09-05] MEDS ORDERED: Naloxone HCl 0.4 mg/ml Vial IVP PRN ×2 (22:33)
[2018-09-05] MEDS ORDERED: Ondansetron PF 4 MG/2 ML Vial IVP PRN (22:33)
[2018-09-05] MEDS ORDERED: Lactated Ringer's 500 ML IV PRN (22:33)
[2018-09-05] MEDS ORDERED: Fentanyl 4 mcg/Bupivacaine 0.1% Cassette 100 ML EPIDURAL SCH (22:45)
[2018-09-05] MEDS ORDERED: Communication Order-Pharmacy FS SCH (22:45)
--- NOTE | 2018-09-06 00:01 | PDOC.LDPN ---
Labor & Delivery Progress Note - Subjective Subjective: comfortable, no concerns - Objective Vital signs reviewed and normal: yes General: NAD, resting Uterine fundus: non tender SVE: 3/60/-2 FHT: category 1 (Baseline 110, accels present, no decels, improved tracing since FSE) [place] contractions every: 3-4 AROM: clear fluid FSE placed: yes - Assessment (1) Obesity Code(s): E66.9 - OBESITY, UNSPECIFIED Current Visit: No Status: Acute (2) Single in third trimester Code(s): Z34.93 - ENCNTR FOR SUPRVSN OF NORMAL PREG, UNSP, THIRD TRIMESTER Current Visit: No Status: Acute -: Term sIUP -Continue pitocin -s/p epidural, AROM, and FSE placement at 2300 with clear fluid -Continue prophylactic abx -Recheck in 3-4 hours -Cat 1 strip GBS unknown -Continue penicillin prophylaxis Non-reassuring BPP of 6/8 -Improved monitoring with FSE -Continue monitoring
[2018-09-06] MEDS ORDERED: Penicillin G 2.5 MILL.units 2.5 MILL.UNITS in Premix Bag 1 BAG IVPB SCH (01:00)
[2018-09-06 01:49] LABS: HBSAg Index 0.22 S/CO (0-0.99); Hep B Surf Ag Non-Reactive S/CO (NonReactive)
[2018-09-06] MEDS ORDERED: Fentanyl 4 mcg/Bup 0.1% Cadd 100 ML ONE (03:07)
--- NOTE | 2018-09-06 03:37 | PDOC.OPDEL ---
OB Operative/Delivery Note - Additional Findings/Plan Compilations/Other Findings: Delivering Physician: Dr. Salcido Attending: Dr. Russell Procedure: Spontaneous Vaginal Delivery Anesthesia: epidural EBL: 400 ml Pre-op Diagnosis: 1. Term intrauterine in labor 2. Anemia 3. Non-compliance Post-op Diagnosis: 1. Term intrauterine , delivered 2. same as above Indications: A 28 y/o female presents to L&D for pain. Pt external FHTs were difficult to monitor due to body habitus and BPP was 6/8. Pt was therefore induced for non-reassuring BPP with contractions. Delivery Note: This is 28 yo F @ 37.4wks who delivered a viable M at 0313. Following an uneventful antepartum course, a vigorous male was delivered over an intact perineum in the occipitoanterior position. Anterior Shoulder and then remainder of the body delivered. Loose nuchal cord x1. The head was held down and mouth and nares were bulb suctioned. Cord clamped after delayed cord clamping and cut and cord blood collected. Placenta delivered intact in the [place] with a 3 vessel cord noted. Fundal massage was performed and the fundus was firm. The cervix and vagina were inspected and found to be free of lacerations. Infant went to nursery in good condition for routine care. Apgars were 8/9 at 1 & 5 minutes, respectively. Patient tolerated delivery well and went to after routine recovery/care. Addendum - Attending - Attending Attestation Date/Time: 09/06/18 6817 I personally evaluated the patient and discussed the management with Dr. Salcido I agree with the History, Examination, Assessment and Plan documented above with any addition or exceptions noted below. I was present and supervising the 2nd and 3rd stages of labor in the room.
[2018-09-06] MEDS ORDERED: Acetaminophen 325 MG TAB PO PRN (04:10)
[2018-09-06] MEDS ORDERED: Bisacodyl 10 MG SUPP PR PRN (04:10)
[2018-09-06] MEDS ORDERED: Milk Of Magnesia 30 ML UDCUP PO PRN (04:10)
[2018-09-06] MEDS: Ibuprofen 800 MG TAB PO SCH ×3 (06:10→20:28)
[2018-09-06] MEDS: Ferrous Sulfate 325 MG TAB PO SCH ×2 (07:29→15:15)
[2018-09-06] MEDS: Docusate Calcium (SURFAK) 240 MG CAP PO SCH ×2 (07:29→20:28)
[2018-09-06] MEDS ORDERED: Benzocaine-Menthol 82.5 ML CAN TOP PRN (08:11)
[2018-09-06] MEDS ORDERED: Adacel (T-DAP) 0.5 ML SYRINGE IM ONE (09:00)
[2018-09-06] MEDS ORDERED: HYDROcodone/Acetaminophen 5/325 mg Tablet PO PRN (12:21)
[2018-09-06] MEDS: HYDROcodone/Acetaminophen 5/325 mg Tablet PO PRN ×3 (12:46→20:29)
[2018-09-07] MEDS: HYDROcodone/Acetaminophen 5/325 mg Tablet PO PRN ×6 (00:20→22:31)
[2018-09-07] MEDS: Ibuprofen 800 MG TAB PO SCH ×3 (04:24→22:31)
--- NOTE | 2018-09-07 06:20 | PDOC.PP ---
Post Progress Note Post Day #: 1 Subjective: Doing well, has other children at home. Desires circ for child. PO intake tolerated: yes Flatus: yes Ambulation: yes Vital Signs (12 hours) Temp Pulse Resp BP Pulse Ox 09/07/18 00:15 98.3 F 79 18 117/51 L 09/06/18 20:25 98.7 F 61 18 109/52 L 99 Weight Weight 310 lb Afebrile and BPS are normal on review - Physical Examination General: NAD Cardiovascular: no m/r/g Respiratory: clear to auscultation bilaterally Abdominal: + bowel sounds Extremities: negative homans (B) Neurological: no gross focal deficits Psychiatric: A&Ox3, normal affect Result Diagrams: 09/05/18 18:13 Additional Labs: Post Labs Blood Type O POSITIVE 09/05/18 18:13 Hep Bs Antigen Non-Reactive S/CO (NonReactive) 09/05/18 18:13 (1) Single in third trimester Code(s): Z34.93 - ENCNTR FOR SUPRVSN OF NORMAL PREG, UNSP, THIRD TRIMESTER Status: Acute (2) Vaginal delivery Code(s): O80 - ENCOUNTER FOR FULL-TERM UNCOMPLICATED DELIVERY Status: Acute - Assessment/Plan A/P: Doing well. No acute issues identified. No evidence depression. OK for anticipated noon [facility] today as able. F/U with clinic in 2 weeks or so for wellness check.
--- NOTE | 2018-09-07 07:59 | PDOC.OBPPN ---
FMR OB PN: Subj - Interval History Day: 1 28 y/o @ 37.4 WGA delivered via Patient has no concerns. She reports her pain is well controlled with ibuprofen. Endorses flatus. Denies BM. Tolerating PO and has been ambulating in the room. She is breast and bottle feeding, but mostly bottle. Endorses minimal lochia. Denies swelling, SOB, H/A, vision changes, N/V. FMR OB PN: Obj - Maternal Vital signs: BP: 117/51 HR: 79 RR: 18 Tmax: 98.3 Pox: 99% on RA Wt: 140.6kg FMR OB PN: Exam - Physical Exam General: NAD, awake, alert and oriented HEENT: MMM, conjunctiva clear, grossly normal vision, grossly normal hearing Heart: RRR, normal S1/S2, no murmurs/rubs/gallops, pulses present, no edema General: CTAB, no respiratory distress, good air movement, no rales/rhonchi, no wheezing Abdomen: soft, fundus(cm) (firm 2 cm below umbilicus) Skin: good tugor : appropriately tender Psychiatric: intact recent and remote memory, good judgement and insight FMR OB PN: A/P - Problem List (1) Vaginal delivery Current Visit: No Status: Acute Code(s): O80 - ENCOUNTER FOR FULL-TERM UNCOMPLICATED DELIVERY Assessment and Plan: Routine post- care -Cont PNV -Ibuprofen for pain -Encouraged ambulation -Encouraged breast feeding -Plan for d/c home this afternoon with Disposition: d/c home this afternoon. Discussion: Date/Time: 09/07/18 0750 This H&P was discussed with Dr. Peters who agrees with the above documentation and plan. Signature: Jaycee Lee MD, PGY-2
[2018-09-07] MEDS: Ferrous Sulfate 325 MG TAB PO SCH ×2 (08:23→16:30)
[2018-09-07] MEDS: Docusate Calcium (SURFAK) 240 MG CAP PO SCH ×2 (08:27→22:31)
[2018-09-07] MEDS ORDERED: FLUoxetine HCl 20 MG CAP PO SCH (10:15)
--- NOTE | 2018-09-07 10:17 | PDOC.EVN ---
Event Note - Event Note Event Note: Patient seen at 1000. Patient is very tearful and concerned about her baby. States she has a history of anxiety and depression that has responded to prozac in the past. Denies SI/HI. Would like to start prozac today. Since she is GBS unknown, plan to monitor for 48 hours. Plan to hold d/c now and send home tomorrow with . Discussed with Dr. Russell.
[2018-09-08] MEDS: Ibuprofen 800 MG TAB PO SCH (05:00)
[2018-09-08] MEDS: HYDROcodone/Acetaminophen 5/325 mg Tablet PO PRN (05:00)
--- NOTE | 2018-09-08 07:01 | PDOC.OBPPN ---
FMR OB PN: Subj - Interval History Day: 2 28 y/o @ 37.4 WGA delivered via Patient has no concerns. She reports her pain is well controlled with ibuprofen and norco. Endorses flatus. Denies BM. Tolerating PO and has been ambulating. She is breast and bottle feeding, but mostly bottle. Endorses minimal lochia. She reports feeling less anxious today than yesterday and is ready to go home. Denies swelling, SOB, H/A, vision changes, N/V. FMR OB PN: Obj - Maternal Vital signs: BP: 124/70 HR: 70 RR: 18 Tmax: 98.6 Pox: 99% on RA Wt: 140.6kg FMR OB PN: Exam - Physical Exam General: NAD, awake, alert and oriented HEENT: MMM, conjunctiva clear, grossly normal vision, grossly normal hearing Neck: supple, no LAD Heart: RRR, normal S1/S2, no murmurs/rubs/gallops, pulses present, no edema General: CTAB, no respiratory distress, good air movement, no rales/rhonchi, no wheezing Abdomen: soft, fundus(cm) (firm 2cm below umbilicus), bowel sound present Musculoskeletal: FROM in all four extremities Neurological: no clonus, no focal deficit Skin: good tugor, capillary refill <2 seconds : appropriately tender Psychiatric: intact recent and remote memory, good judgement and insight, normal mood and affect FMR OB PN: A/P - Problem List (1) Vaginal delivery Current Visit: No Status: Acute Code(s): O80 - ENCOUNTER FOR FULL-TERM UNCOMPLICATED DELIVERY Assessment and Plan: Routine post- care -Cont PNV -Ibuprofen for pain, will d/c norco -Encouraged ambulation -Encouraged breast feeding -Plan for d/c home today with Disposition: d/c home today Discussion: Date/Time: 09/08/18 3436 This H&P was discussed with Dr. Russell who agrees with the above documentation and plan. Signature: Jaycee Lee MD, PGY-2 Addendum - Attending - Attending Attestation Date/Time: 09/08/18 6936 I personally evaluated the patient and discussed the management with I agree with the History, Examination, Assessment and Plan documented above with any addition or exceptions noted below. Pt is feeling alot better this morning and is ready for discharge on prozac. Pt couselled tof/u in 1 wk with pnc. Also counselled not to discontinue prozac with out md involvement. PT has expressed understanding.
[2018-09-08 08:21] VITALS: BP 132/66; TEMP 98.5
[2018-09-08] MEDS: Ferrous Sulfate 325 MG TAB PO SCH (08:54)
[2018-09-08] MEDS: Docusate Calcium (SURFAK) 240 MG CAP PO SCH (08:54)
[2018-09-08] MEDS ORDERED: FLUoxetine HCl 20 MG CAP PO SCH (09:00)
[2018-09-08] MEDS ORDERED: Acetaminophen 325 MG TAB PO PRN (11:09)
== END 2018-09-08 12:55 | disposition home or self-care (01) | DRG 807 ==
LOC: L&D/OP 14:13 → L&D 21:12 → 3SW 09-06 05:58
PROVIDERS: ADMIT Obstetrics & Gynecology; ATTEND Obstetrics & Gynecology
PROC: 10E0XZZ Delivery of Products of Conception, External Approach (ICD-10-PCS; principal; 2018-09-06)
PROC: 3E033VJ Introduction of Other Hormone into Peripheral Vein, Percutaneous Approach (ICD-10-PCS; 2018-09-06)
DX: O76 Abnormality in fetal heart rate and rhythm complicating labor and delivery (principal); Z37.0 Single live birth; O99.344 Other mental disorders complicating childbirth; F41.9 Anxiety disorder, unspecified; O99.214 Obesity complicating childbirth; E66.9 Obesity, unspecified; O99.02 Anemia complicating childbirth; D64.9 Anemia, unspecified; O69.81X0 Labor and delivery complicated by cord around neck, without compression, not applicable or unspecified; Z3A.37 37 weeks gestation of pregnancy; Z91.19 Patient's noncompliance with other medical treatment and regimen
CPT/HCPCS: 51702; 76819; 85027; 86780; 86850; 86900; 86901; 87340; 99285; J2001; J2270; J2405; J2540; J2590; J3490

== ENCOUNTER 2018-09-10 18:29 | Emergency (ER) | payer OTHER ==
[~2018-09-10 18:29] MED LIST: Iopamidol 370 76% 100 ML VIAL ONE
--- NOTE | 2018-09-10 19:57 | RAD ---
CHEST ONE VIEW: 09/10/18 HISTORY: Recent delivery. FINDINGS: Normal cardiac silhouette. Pulmonary vessels and hilum are normal. Costophrenic angles are clear. Dim inished lung volumes, likely due to poor inspiratory effort. No consolidation or mass. No pneumothora x or osseous abnormalities. IMPRESSION: No acute cardiopulmonary process. Diminished lung volumes, likely due to poor inspiratory effort. POS: PPP
[2018-09-10 20:17] LABS: Bilirubin Negative (Negative); Blood, Urine Large (Negative); Clarity CLOUDY (Clear); Glucose, Urine (Dipstick) Negative (Negative); Leukocyte Trace (Negative); Nitrite Negative (Negative); Protein, Urine (Dipstick) Trace mg/dL (Neg-Trace); Urobilinogen 0.2 mg/dL (0.2-1.0)
[2018-09-10 20:21] LABS: Bacteria/HPF None Seen HPF (None Seen); Hyaline Casts/LPF 4-6 HYALINE CAST LPF (0-3 Hyaline); Pathc Cast-AUWi Flag 1.08 (0-2.49); RBC/HPF GREATER THAN 50-TNTC HPF (0-3)
[2018-09-10 20:26] LABS: #Eosinphils 0.1 thou/uL (0.0-0.7); #Lymphocytes 2.6 thou/uL (1.20-3.40); #Monocytes 0.6 thou/uL (0.11-0.59); #Neutrophils 4.7 thou/uL (1.40-6.50); %Basophils 0.4 % (0.0-1.0); %Eosinophils 1.5 % (0.0-10.0); %Lymphocytes 32.3 % (21.0-51.0); %Monocytes 7.8 % (0.0-10.0); %Neutrophils 57.9 % (42.0-75.0); Hemoglobin 9.1 g/dL (12.0-16.0); Mean Corpuscular HGB CONC 33.2 g/dL (32.0-36.0); Mean Corpuscular Hemoglobin 26.7 pg (27.0-31.0); Mean Corpuscular Volume 80.6 fL (78.0-98.0); Mean Platelet Volume 7.3 fL (7.4-10.4); Platelet Count 297 thou/uL (130-400); RBC Distribution Width 13.6 % (11.5-14.5); Red Blood Cell (RBC) Count 3.38 mill/uL (4.20-5.40); White Blood Cell (WBC) Count 8.1 thou/uL (4.8-10.8)
[2018-09-10 20:45] LABS: ALT (SGPT) 22 U/L (8-55); AST (SGOT) 21 U/L (5-34); Albumin 3.4 g/dL (3.5-5.0); Alkaline Phosphatase 148 U/L (40-150); Anion Gap 11 mmol/L (10-20); BUN (Urea Nitrogen) 11 mg/dL (7.0-18.7); Bilirubin, Total 0.3 mg/dL (0.2-1.2); Calc. Creatinine Clearance 0 mL/min (70-130); Calcium 9.2 mg/dL (7.8-10.44); Carbon Dioxide 26 mmol/L (22-29); Chloride 105 mmol/L (98-107); Estimated GFR-MDRD Greater than 90; Globulin 3.8 g/dL (2.4-3.5); Glucose 81 mg/dL (70-105); Potassium 3.9 mmol/L (3.5-5.1); Protein, Total 7.2 g/dL (6.0-8.3); Sodium 138 mmol/L (136-145)
--- NOTE | 2018-09-10 23:30 | CT ---
EXAM: CT angiogram of the chest including 3-D rendering: HISTORY: Chest pain COMPARISON: None FINDINGS: There is adequate opacification of the pulmonary arteries. No evidence for aortic aneurysm or dissection. No convincing CT evidence for acute pulmonary embolism. No significant acute pulmonary parenchymal process. No evidence for mediastinal mass or adenopathy. No evidence for pleural or pericardial effusion. Evidence for hepatomegaly with fatty changes. Borderline splenomegaly. Large body habitus lowers the sensitivity of this study. IMPRESSION: No convincing CT evidence for acute pulmonary embolism. Hepatomegaly with fatty change. Borderline splenomegaly.
[2018-09-10] MEDS ORDERED: Ondansetron PF 4 MG/2 ML Vial ONE (23:43)
[2018-09-10] MEDS ORDERED: Lorazepam 1 MG TAB ONE (23:43)
== END 2018-09-11 00:09 | disposition home or self-care (01) ==
LOC: ERS 18:29
DX: O99.89 Other specified diseases and conditions complicating pregnancy, childbirth and the puerperium (principal); R07.89 Other chest pain; F41.9 Anxiety disorder, unspecified; F32.9 Major depressive disorder, single episode, unspecified
CPT/HCPCS: 71045; 71275; 80053; 81003; 81015; 83880; 84484; 85025; 85379; 93005; 96374; J2405; Q9967

== ENCOUNTER 2019-01-24 12:58 | Emergency (ER) | payer OTHER ==
[2019-01-24] MEDS ORDERED: ALPRAZolam 0.5 MG TAB ONE (14:24)
[2019-01-24] MEDS ORDERED: Ondansetron ODT 8 MG TAB ONE (14:25)
[2019-01-24 14:42] LABS: Clarity Clear (Clear); Pregnancy Test - Urine (BHCG) Negative (Negative); Pregu Control Background? CLEAR/WHITE (CLR/WHITE); Pregu Control Bar Appear? YES (CONTROL BAR); Specific Gravity 1.026 (1.002-1.036)
[2019-01-24 14:43] LABS: Bacteria/HPF 1+ HPF (None Seen); Bilirubin Negative (Negative); Blood, Urine Negative (Negative); Glucose, Urine (Dipstick) Normal (Negative); Leukocyte 75 Leu/uL (Negative); Nitrite Negative (Negative); Protein, Urine (Dipstick) 10 mg/dL (Neg-Trace); Squamous Epithelial 0-3 HPF (0-3); Urobilinogen Normal mg/dL (Less than 2); WBC/HPF 0-3 HPF (0-3)
[2019-01-24 14:49] LABS: #Eosinphils 0.1 thou/uL (0.0-0.7); #Lymphocytes 2.5 thou/uL (1.20-3.40); #Monocytes 0.7 thou/uL (0.11-0.59); #Neutrophils 5.7 thou/uL (1.40-6.50); %Basophils 0.5 % (0.0-1.0); %Eosinophils 0.9 % (0.0-10.0); %Monocytes 7.8 % (0.0-10.0); %Neutrophils 62.8 % (42.0-75.0); Hemoglobin 11.7 g/dL (12.0-16.0); Mean Corpuscular HGB CONC 32.9 g/dL (32.0-36.0); Mean Corpuscular Volume 79.1 fL (78.0-98.0); Mean Platelet Volume 7.6 fL (7.4-10.4); Platelet Count 268 thou/uL (130-400); RBC Distribution Width 14.4 % (11.5-14.5); Red Blood Cell (RBC) Count 4.51 mill/uL (4.20-5.40)
[2019-01-24 15:09] LABS: ALT (SGPT) 18 U/L (8-55); AST (SGOT) 20 U/L (5-34); Albumin 4.1 g/dL (3.5-5.0); Alkaline Phosphatase 82 U/L (40-110); Anion Gap 12 mmol/L (10-20); BUN (Urea Nitrogen) 10 mg/dL (7.0-18.7); Bilirubin, Total 0.4 mg/dL (0.2-1.2); Calc. Creatinine Clearance 0 mL/min (70-130); Calcium 9.3 mg/dL (7.8-10.44); Carbon Dioxide 24 mmol/L (22-29); Chloride 105 mmol/L (98-107); Estimated GFR-MDRD 87; Globulin 3.7 g/dL (2.4-3.5); Glucose 87 mg/dL (70-105); Lipase 19 U/L (8-78); Protein, Total 7.8 g/dL (6.0-8.3); Sodium 137 mmol/L (136-145)
[2019-01-24] MEDS ORDERED: Ondansetron PF 4 MG/2 ML Vial ONE (15:28)
[2019-01-24] MEDS ORDERED: methylPREDNISolone Sod Succ/PF 125 MG/2 ML VIAL ONE (17:53)
[2019-01-24] MEDS ORDERED: Famotidine/PF 20 mg/2ml Vial ONE (17:53)
[2019-01-24] MEDS ORDERED: diphenhydrAMINE 50 MG/ML VIAL ONE (17:53)
[2019-01-24] MEDS ORDERED: Aspirin 300 MG Suppository ONE (19:19)
== END 2019-01-24 14:14 | disposition home or self-care (01) ==
LOC: ERS 12:58
DX: F43.9 Reaction to severe stress, unspecified (principal); R11.2 Nausea with vomiting, unspecified; F41.9 Anxiety disorder, unspecified; F32.9 Major depressive disorder, single episode, unspecified
CPT/HCPCS: 36415; 80053; 81003; 81015; 81025; 83690; 85025; J1200; J2405; J2930; S0028

== ENCOUNTER 2019-05-12 18:56 | Emergency (ER) | payer MEDICAID, SELFPAY ==
--- NOTE | 2019-05-12 20:08 | RAD ---
EXAM: XR Knee Rt 4 View STANDARD PROVIDED CLINICAL HISTORY: Pain FINDINGS: There is no evidence for fracture or other acute osseous abnormality. Alignment appears anatomic. Domitila nt spaces appear preserved. IMPRESSION: No evidence for an acute osseous abnormality. If there is persistent clinical concern, conservative m anagement and follow-up imaging advised.
[2019-05-12] MEDS ORDERED: Ketorolac Tromethamine 30 MG/ML VIAL ONE (20:51)
== END 2019-05-12 20:48 | disposition home or self-care (01) ==
LOC: ERS 18:56
DX: M25.561 Pain in right knee (principal); F41.9 Anxiety disorder, unspecified; F32.9 Major depressive disorder, single episode, unspecified
CPT/HCPCS: 96372; J1885

== ENCOUNTER 2022-09-24 22:37 | Emergency (ER) | payer OTHER ==
[2022-09-24] MEDS ORDERED: Lorazepam 1 MG TAB ONE (23:14)
[2022-09-25 00:26] LABS: #Basophils 0.1 thou/uL (0.0-0.2); #Eosinphils 0.1 thou/uL (0.0-0.7); #Monocytes 0.9 thou/uL (0.11-0.59); #Neutrophils 5.7 thou/uL (1.40-6.50); %Basophils 0.5 % (0.0-1.0); %Eosinophils 0.5 % (0.0-10.0); %Lymphocytes 31.8 % (21.0-51.0); %Monocytes 9.1 % (0.0-10.0); %Neutrophils 57.9 % (42.0-75.0); Hemoglobin 12.9 g/dL (12.0-16.0); Mean Corpuscular Hemoglobin 28.5 pg (27.0-31.0); Platelet Count 239 10x3/uL (130-400); RBC Distribution Width 14.7 % (11.5-14.5); Red Blood Cell (RBC) Count 4.53 mill/uL (4.20-5.40); White Blood Cell (WBC) Count 9.8 10x3/uL (4.8-10.8)
[2022-09-25 00:50] LABS: ALT (SGPT) 18 U/L (8-55); AST (SGOT) 21 U/L (5-34); Alkaline Phosphatase 68 U/L (40-110); Anion Gap 15 mmol/L (10-20); BUN (Urea Nitrogen) 14 mg/dL (7.0-18.7); Bilirubin, Total 0.6 mg/dL (0.2-1.2); Calc. Creatinine Clearance 0 mL/min (70-130); Calcium 9.8 mg/dL (7.8-10.44); Carbon Dioxide 23 mmol/L (22-29); Chloride 105 mmol/L (98-107); Estimated GFR 98; Globulin 3.4 g/dL (2.4-3.5); Glucose 97 mg/dL (70-105); Potassium 3.3 mmol/L (3.5-5.1); Protein, Total 7.4 g/dL (6.0-8.3); Sodium 140 mmol/L (136-145)
[2022-09-25 00:51] LABS: Acetaminophen Less than 10 mcg/mL (10.0-30.0); Alcohol Less than 10.0 mg/dL (Less than 10); Salicylate Less than 8.0 mg/dL (15.0-30.0)
[2022-09-25 02:10] LABS: Bacteria/HPF None Seen HPF (None Seen); Bilirubin Negative (Negative); Blood, Urine Trace (Negative); CAUTI Indications for Culture Alt mental st,lethar; Clarity Turbid (Clear); Glucose, Urine (Dipstick) Normal (Negative); Ketone, Urine Trace mg/dL (Negative); Leukocyte 500 Leu/uL (Negative); Nitrite Negative (Negative); Protein, Urine (Dipstick) 30 mg/dL (Neg-Trace); RBC/HPF 0-3 HPF (0-3); Specific Gravity, Urine 1.025 (1.002-1.036); WBC/HPF 21-50 HPF (0-3)
[2022-09-25 02:11] LABS: Pregnancy Test - Urine (BHCG) Negative (Negative); Pregu Control Background? CLEAR/WHITE (CLR/WHITE); Pregu Control Bar Appear? YES (CONTROL BAR); Specific Gravity 1.025 (1.002-1.036); Urine Culture Reflex Yes Yes
[2022-09-25 02:14] LABS: Amphetamine Detected (NotDetected); Barbiturates Screen Not Detected (NotDetected); Benzodiazepine Screen Detected (NotDetected); Cocaine Metabolite Screen Not Detected (NotDetected); Methadone Not Detected (NotDetected); Methamphetamine Detected (NotDetected); Opiate Screen Not Detected (NotDetected); Oxycodone Screen Not Detected (NotDetected); Phencyclidine (PCP) Not Detected (NotDetected); THC/Cannabinoid Screen Detected (NotDetected); Tricyclic Screen Not Detected (NotDetected)
[2022-09-25] MEDS ORDERED: Lorazepam 1 MG TAB ONE (07:37)
[2022-09-25] MEDS ORDERED: Acetaminophen 325 MG TAB ONE (07:37)
== END 2022-09-25 10:25 ==
LOC: ERS 22:37
DX: F19.10 Other psychoactive substance abuse, uncomplicated (principal); F17.210 Nicotine dependence, cigarettes, uncomplicated
CPT/HCPCS: 36415; 80053; 80306; 80307; 81001; 81025; 84443; 85025; 87086; 99285